=== PATIENT | female | born 1980 | race Caucasian/White ===

== ENCOUNTER 2016-07-11 11:21 | Inpatient (IN) | payer BC ==
[~2016-07-11] VITALS: Ht 160.1 cm; Wt 105.5 kg
[~2016-07-11 11:21] MED LIST: MOTRIN 800800 MG/TAB PO; PERCOCET 325 MG1 TA2 PO; PRENATAL1 TA7 PO
[2016-08-01] VITALS (19 sets, daily range): BP systolic 102–131; BP diastolic 42–82; PULSE 57–94; TEMP 97.8–98.2
[2016-08-01 06:57] LABS: BASO % 0.3 % (0.0-2.0); EOS # 0.1 (0.0-0.7); EOS % 0.8 % (0-4.0); GRAN # 6.9 (1.4-6.5); GRAN % 73.9 % (42.2-75.2); LYMPH # 1.9 (1.2-3.4); LYMPH % 19.9 % (20.0-51.0); MEAN CELL VOLUME 88 fl (80.0-100.0); MEAN CORPUSCULAR HEMOGLOBIN 30 pg (27.0-31.0); MEAN CORPUSCULAR HGB CONC 34 g/dl (33.0-37.0); MEAN PLATELET VOLUME 13.2 fl (7.4-10.4); MONO # 0.4 (0.1-0.6); MONO % 4.5 % (1.7-9.3); PLATELET COUNT 179 K/mm3 (130-400); RED BLOOD COUNT 3.62 M/mm3 (4.10-5.30); REDCELL DISTRIBUTION WIDTH-CV 12.5 % (11.5-14.5); WHITE BLOOD COUNT 9.3 K/mm3 (4.8-10.8)
[2016-08-01] MEDS ORDERED: MOTRIN 600600 MG/TAB PO (08:56)
[2016-08-01] MEDS ORDERED: PERCOCET 325 MG1 TA2 PO (08:57)
[2016-08-02 07:15] VITALS: BP 117/70; PULSE 78; TEMP 97.7
[2016-08-02 15:15] VITALS: BP 127/67; PULSE 87; TEMP 97.7
[2016-08-02 20:50] VITALS: BP 125/67; PULSE 87; TEMP 98.1
[2016-08-03 07:39] VITALS: BP 125/61; PULSE 84; TEMP 97.8
== END 2016-08-03 11:25 | disposition home or self-care (01) | DRG 766 ==
LOC: EDSTATUS 08-01 06:58 → LDR 08-01 07:02 → OB 08-01 07:13 → LDRO 08-01 11:21 → OB 08-03 11:25
PROVIDERS: Obstetrics & Gynecology
PROC: 10D00Z1 Extraction of Products of Conception, Low, Open Approach (ICD-10-PCS; principal; 2016-08-01)
DX: O34.211 Maternal care for low transverse scar from previous cesarean delivery (principal); N85.8 Other specified noninflammatory disorders of uterus; O48.0 Post-term pregnancy; O09.523 Supervision of elderly multigravida, third trimester; Z3A.40 40 weeks gestation of pregnancy; Z37.0 Single live birth
CPT/HCPCS: J0690; J1885; J2175; J2270; J2370; J2405; J2550; J2590; J2765; J7120

== ENCOUNTER → 2018-01-20 | Outpatient (CLI) | payer BC ==
[~2018-01-20] MED LIST changes: +MOTRIN 600600 MG/TAB PO
== END ==
LOC: COL.RAD 10:22
DX: N94.10 Unspecified dyspareunia (principal); Z79.899 Other long term (current) drug therapy

== ENCOUNTER → 2018-07-15 | Outpatient (CLI) | payer BC | LOC: COL.RAD 08:30 | DX: S43.431A Superior glenoid labrum lesion of right shoulder, initial encounter (principal) | CPT/HCPCS: A9585; Q9967 ==

== ENCOUNTER 2018-08-10 08:02 | Outpatient (RCR) | payer BC | END 2018-11-08 | disposition still patient (30) | LOC: WSC | DX: Z01.818 Encounter for other preprocedural examination (principal); S43.431A Superior glenoid labrum lesion of right shoulder, initial encounter ==

== ENCOUNTER 2018-11-13 08:15 | Outpatient (RCR) | payer BC | END 2018-11-15 | disposition home or self-care (01) | LOC: WSPT | DX: Z47.89 Encounter for other orthopedic aftercare (principal) ==

== ENCOUNTER 2018-12-16 08:15 | Outpatient (RCR) | payer BC | END 2018-12-16 16:30 | disposition home or self-care (01) | LOC: WSPT 08:15 | DX: Z47.89 Encounter for other orthopedic aftercare (principal); M75.21 Bicipital tendinitis, right shoulder ==

== ENCOUNTER → 2022-02-12 | Outpatient (CLI) | payer BC | LOC: MC.RAD 12:54 | DX: Z12.31 Encounter for screening mammogram for malignant neoplasm of breast (principal) ==

== ENCOUNTER → 2024-04-01 | Outpatient (CLI) | payer BC | LOC: MC.RAD 12:26 | DX: Z12.31 Encounter for screening mammogram for malignant neoplasm of breast (principal) ==